=== PATIENT | female | born 1940 | race Caucasian/White ===

== ENCOUNTER → 2021-04-06 09:00 | Outpatient (CLI) | payer MEDICARE, SELFPAY ==
[2021-04-06 20:36] VITALS: BMI 18.0
== END ==
PROVIDERS: Referring Provider Internal Medicine; Visit Provider Internal Medicine
DX: Z23 Encounter for immunization (principal); R62.7 Adult failure to thrive; R07.9 Chest pain, unspecified; R06.02 Shortness of breath; E86.0 Dehydration; R53.1 Weakness; R63.4 Abnormal weight loss; R60.0 Localized edema; W19.XXXA Unspecified fall, initial encounter; F03.90 Unspecified dementia, unspecified severity, without behavioral disturbance, psychotic disturbance, mood disturbance, and anxiety; R32 Unspecified urinary incontinence; R15.9 Full incontinence of feces; E11.9 Type 2 diabetes mellitus without complications; I10 Essential (primary) hypertension; I25.10 Atherosclerotic heart disease of native coronary artery without angina pectoris; Z91.81 History of falling; Z79.84 Long term (current) use of oral hypoglycemic drugs; Z20.822 Contact with and (suspected) exposure to COVID-19
CPT/HCPCS: 0031A

== ENCOUNTER 2021-04-06 12:14 | Observation (INO) | payer OTHER, MEDICAID, SELFPAY ==
[2021-04-06 12:29] VITALS: BP 168/81; PULSE 80; RESP 22; TEMP 36.1; O2SAT 99; BMI 18.0
--- NOTE | 2021-04-06 12:36 | DI.RAD.S_ITS ---
PROCEDURE: XR CHEST 1V INDICATIONS: chest pain TECHNIQUE: One view of the chest was acquired. COMPARISON: None. FINDINGS: Surgical changes and devices: Prior right axillary dissection and right mastectomy. Lungs and pleura: Lungs are clear. No pleural effusions or pneumothorax. Mediastinum: Mediastinal contours appear normal. Heart size is normal. Bones and chest wall: No suspicious bony lesions. Probable mild compression fracture of T10. Chronicity unknown. Overlying soft tissues appear unremarkable. IMPRESSION: No acute cardiopulmonary disease. Dictated by: Bailey Simmons M.D. on 04/06/2021 at 13:07 Approved by: Bailey Simmons M.D. on 04/06/2021 at 13:09
[2021-04-06 13:04] LABS: Add Manual Diff / Slide Review NO; Basophils Absolute Auto 100 /uL (0-100); Basophils Percent Auto 0.8 % (0-2); Eosinophils Absolute Auto 100 /uL (0-450); Eosinophils Percent Auto 1.3 % (2-4); Hematocrit 44.3 % (36-46); Hemoglobin 14.5 g/dL (12.0-16.0); Lymphocytes Absolute Auto 2000 /uL (1100-4500); Lymphocytes Percent Auto 24.5 % (25-40); Mean Corpuscular HGB Conc 32.7 % (30-36); Mean Corpuscular Volume 82.5 fL (80-100); Monocytes Absolute Auto 600 /uL (0-900); Neutrophils Absolute Auto 5400 /uL (1500-7000); Neutrophils Percent Auto 66.4 % (50-75); Platelet Count 304 X10^3/uL (150-400); Red Blood Cell Count 5.36 X10^6/uL (4.0-5.2); Red Cell Distribution Width 13.2 % (11.6-14.8); White Blood Cell Count 8.1 X10^3/uL (4.5-11.0)
[2021-04-06 13:16] LABS: Alanine Aminotransferase 11 IU/L (<35); Albumin 4.1 g/dL (3.5-5.0); Albumin Globulin Ratio 1.4 (1.0-2.8); Alkaline Phosphatase 76 U/L (38-126); Aspartate Aminotransferase 20 IU/L (14-36); BUN Creatinine Ratio 42.1 (6-22); Bilirubin Total 0.4 mg/dL (0.2-1.3); Blood Urea Nitrogen 16 mg/dL (7-17); Calcium 9.6 mg/dL (8.4-10.2); Carbon Dioxide 29 mmol/L (22-32); Chloride 100 mmol/L (98-107); Creatine Kinase 31 U/L (30-135); Estimated Glomerular Filt Rate > 60.0 mL/min (>60); Glucose 244 mg/dL (80-110); HEMOLYSIS < 15 (0-50); Lipase 43 U/L (23-300); Potassium 4.3 mmol/L (3.4-5.1); Sodium 138 mmol/L (137-145); Total Protein 7.1 g/dL (6.3-8.2)
[2021-04-06 13:26] LABS: Troponin I < 0.012 ng/mL (0.01-0.034)
[2021-04-06 13:32] LABS: NT-proBNP (BNP-Adult 18+) 670 pg/mL (<450)
--- NOTE | 2021-04-06 14:32 | ED.CHESTPAIN ---
HPI - Chest Pain General Chief Complaint: Shortness of Breath/Dyspnea Stated Complaint: SOB/Holding Heart/Failing Quickly Time Seen by Provider: 04/06/21 13:47 Source: patient Mode of arrival: Ambulatory Limitations: no limitations History of Present Illness HPI narrative: Patient is an 81-year-old female history of coronary artery disease, dementia with cognitive difficulty. His she presents today with her daughter. Her daughter has been taking care of her for 6 months she is asked help but no other family member is able to help her. She acute is now taking care of her in a hotel which is becoming very difficult. She presents today with chest pain and some shortness of breath. Daughter is concerned. They been trying get her into a PCP but he is out of network. She was evaluated by a reducing salon attendant or had some cardiology testing is unclear what was done. With the concern today is chest discomfort. Daughter states that she has had significant decline in her physical ability or last 2 weeks and especially over the last 1 week. She was able to at least transfer and ambulate some however over the last week she is not able to ambulate at all. She does have a wheelchair but becoming very difficult to care for. She has noticed swelling in her right leg as well. She has been falling a lot as well. overall is pleasantly confused. History is provided by daughter. Related Data Allergies Allergy/AdvReac Type Severity Reaction Status Date / Time No Known Drug Allergies Allergy Verified 04/06/21 12:29 Review of Systems Review of Systems Narrative: Dementia ROS Unobtainable: Unobtainable due to mental condition Patient History Social History household members: children Smoking Status: Never smoker Smoking Status: Never smoker Substance Use Type: does not use Exam Initial Vital Signs Initial Vital Signs: Vital Signs Temperature 97.0 F L 04/06/21 12:29 Pulse Rate 80 04/06/21 12:29 Respiratory Rate 22 04/06/21 12:29 Blood Pressure 168/81 H 04/06/21 12:29 Pulse Oximetry 99 04/06/21 12:29 GENERAL: Thin elderly confused female 81 years old HEENT: Head atraumatic,EOMI, pupils reactive, face symmetric, moist mucous membranes CARDIOVASCULAR: Regular rate and rhythm without murmurs, rubs or gallops. RESPIRATORY: Breath sounds equal bilaterally, no wheezes rales or rhonchi. ABDOMEN: Soft, nontender. Normoactive bowel sounds all 4 quadrants. No guarding or rebound. EXTREMITIES: Normal range of motion, no clubbing or edema. Neurovascularly intact. Right lower extremity is noted to be more swollen in her thigh than the left. She has some mild pain in her hip with internal external rotation. Pelvis is otherwise stable. Distal pedal pulses intact. NEUROLOGICAL: Alert foundation maker strength equal bilaterally SKIN: Warm, dry, no laceration, no petechiae, no rashes or lesions. Course Orders Ordered: ED Orders 04/06/21 12:36 XR chest 1V Stat 04/06/21 12:37 Consult to ADVOCACY DIRECTOR - Certified Control Systems Technician Stat 04/06/21 12:38 EKG-12 Lead Stat 04/06/21 12:58 Complete Blood Count AUTO DIFF Stat Comprehensive Metabolic Panel Stat Lipase Stat Troponin & CK Cardiac Panel Stat 04/06/21 13:12 NT-proBNP (BNP-Adult 18+) Stat 04/06/21 14:38 CT head/brain wo con Stat XR hip w pel if done RT 2V Stat 04/06/21 15:20 Consult to Physical Therapy Evaluate & Treat 04/06/21 16:02 COVID19 - ADMIT (SHEET HEATER HELPER swab/PCR) Stat 04/06/21 17:29 US periph venous low extrem rt Stat Discontinued Medications COVID-19 Vacc Ad26-S Recombinant (JSN) (PF) (Covid-19 Vacc, Ad26(Dayanara)/Pf 0.5 Ml) 0.5 ml IM .ONCE ONE Stop: 04/06/21 16:06 Last Admin: 04/06/21 16:19 Dose: 0.5 ml Documented by: WILLIAMS Vital Signs Vital signs: Vital Signs - 8 hr 04/06/21 12:29 04/06/21 17:29 Temperature 97.0 F L Pulse Rate 80 82 Respiratory Rate 22 Blood Pressure 168/81 H 158/75 H Pulse Oximetry 99 98 MDM - Chest Pain Lab Data Result diagrams: 04/06/21 12:58 04/06/21 12:58 Labs: Lab Results 04/06/21 04/06/21 04/06/21 Range/Units 12:58 12:58 13:12 WBC 8.1 (4.5-11.0) X10^3/uL RBC 5.36 H (4.0-5.2) X10^6/uL Hgb 14.5 (12.0-16.0) g/dL Hct 44.3 (36-46) % MCV 82.5 (80-100) fL MCH 27.0 (26-34) PG MCHC 32.7 (30-36) % RDW 13.2 (11.6-14.8) % Plt Count 304 (150-400) X10^3/uL Neut % (Auto) 66.4 (50-75) % Lymph % (Auto) 24.5 L (25-40) % [place] % (Auto) 7.0 (3-14) % Eos % (Auto) 1.3 L (2-4) % Baso % (Auto) 0.8 (0-2) % Neut # (Auto) 5400 (0507-5324) /uL Lymph # (Auto) 2000 (8019-9886) /uL [place] # (Auto) 600 (0-900) /uL Eos # (Auto) 100 (0-450) /uL Baso # (Auto) 100 (0-100) /uL Sodium 138 (137-145) mmol/L Potassium 4.3 (3.4-5.1) mmol/L Chloride 100 (98-107) mmol/L Carbon Dioxide 29 (22-32) mmol/L BUN 16 (7-17) mg/dL Creatinine 0.38 L (0.52-1.04) mg/dL Estimated GFR > 60.0 (>60) mL/min BUN/Creatinine Ratio 42.1 H (6-22) Glucose 244 H (80-110) mg/dL Calcium 9.6 (8.4-10.2) mg/dL Total Bilirubin 0.4 (0.2-1.3) mg/dL AST 20 (14-36) IU/L ALT 11 (<35) IU/L Alkaline Phosphatase 76 (38-126) U/L Total Creatine Kinase 31 (30-135) U/L CK-MB (CK-2) TNP CK-MB (CK-2) Rel Index TNP Troponin I < 0.012 (0.01-0.034) ng/mL NT-Pro-B Natriuret Pep 670 H (<450) pg/mL Total Protein 7.1 (6.3-8.2) g/dL Albumin 4.1 (3.5-5.0) g/dL Globulin 3.0 (1.7-4.1) g/dL Albumin/Globulin Ratio 1.4 (1.0-2.8) Lipase 43 (23-300) U/L SARS-CoV-2 (PCR) (Negative) 04/06/21 Range/Units 16:02 WBC (4.5-11.0) X10^3/uL RBC (4.0-5.2) X10^6/uL Hgb (12.0-16.0) g/dL Hct (36-46) % MCV (80-100) fL MCH (26-34) PG MCHC (30-36) % RDW (11.6-14.8) % Plt Count (150-400) X10^3/uL Neut % (Auto) (50-75) % Lymph % (Auto) (25-40) % [place] % (Auto) (3-14) % Eos % (Auto) (2-4) % Baso % (Auto) (0-2) % Neut # (Auto) (2141-0153) /uL Lymph # (Auto) (2060-6905) /uL [place] # (Auto) (0-900) /uL Eos # (Auto) (0-450) /uL Baso # (Auto) (0-100) /uL Sodium (137-145) mmol/L Potassium (3.4-5.1) mmol/L Chloride (98-107) mmol/L Carbon Dioxide (22-32) mmol/L BUN (7-17) mg/dL Creatinine (0.52-1.04) mg/dL Estimated GFR (>60) mL/min BUN/Creatinine Ratio (6-22) Glucose (80-110) mg/dL Calcium (8.4-10.2) mg/dL Total Bilirubin (0.2-1.3) mg/dL AST (14-36) IU/L ALT (<35) IU/L Alkaline Phosphatase (38-126) U/L Total Creatine Kinase (30-135) U/L CK-MB (CK-2) CK-MB (CK-2) Rel Index Troponin I (0.01-0.034) ng/mL NT-Pro-B Natriuret Pep (<450) pg/mL Total Protein (6.3-8.2) g/dL Albumin (3.5-5.0) g/dL Globulin (1.7-4.1) g/dL Albumin/Globulin Ratio (1.0-2.8) Lipase (23-300) U/L SARS-CoV-2 (PCR) Negative (Negative) Imaging Data Chest x-ray: Radiologist's Impression: PROCEDURE:? XR CHEST 1V ? INDICATIONS:? chest pain ? TECHNIQUE:? One view of the chest was acquired.? ? COMPARISON:? None. ? FINDINGS:? ? Surgical changes and devices:? Prior right axillary dissection and right mastectomy. ? Lungs and pleura:? Lungs are clear.? No pleural effusions or pneumothorax.? ? Mediastinum:? Mediastinal contours appear normal.? Heart size is normal.? ? Bones and chest wall:? No suspicious bony lesions.? Probable mild compression fracture of T10.? Chronicity unknown.? Overlying soft tissues appear unremarkable.? ? IMPRESSION:? No acute cardiopulmonary disease.? ? ? Dictated by: Bailey Simmons M.D. on 04/06/2021 at 13:07 ? CT scan - head: Radiologist's Impression: PROCEDURE:? CT HEAD/BRAIN WO CON ? INDICATIONS:? falls ? TECHNIQUE:? Noncontrast 4.5 mm thick angled axial sections acquired from the foramen magnum to the vertex, with coronal and sagittal reformats.? For radiation dose reduction, the following was used:? automated exposure control, adjustment of mA and/or kV according to patient size.? ? COMPARISON:? None. ? FINDINGS:? Image quality:? Excellent.? ? CSF spaces:? Basal cisterns are patent.? No extra-axial fluid collections.? The ventricles are symmetric in size and shape.? ? Brain:? No intracranial bleeds or masses.? There is cerebral volume loss for age, with resultant ventricular and sulcal prominence.? There are periventricular and deep white matter chronic small vessel ischemic changes.? There is intracranial internal carotid artery atherosclerosis.? ? Skull and face:? Calvarium and visualized facial bones appear intact, without suspicious lesions.? Incidental note is made of hyperostosis frontalis. This is not considered to be pathologic in a woman of this age. ? Sinuses:? Visualized sinuses and mastoids are clear.? Moderate rightward nasal septal deviation is incidentally noted. ? ? ? IMPRESSION:? ? No acute intracranial process is seen.? ? No acute intracranial hemorrhage is seen.? ? ? Dictated by: Benji Meade M.D. on 04/06/2021 at 13:55 ? ? Extremity x-ray #1: Radiologist's Impression: PROCEDURE:? XR HIP W PEL IF DONE RT 2V ? INDICATIONS:? pain ? TECHNIQUE:? AP pelvis with lateral view of the right hip. ? COMPARISON:? None. ? FINDINGS:? ? Bones:? The patient is mildly rotated towards the right.? No acute fractures or dislocations.? Pelvic ring appears intact.? No suspicious bony lesions.? Mild degenerative changes are seen in the lower lumbar spine.? There is generalized osteopenia. ? Soft tissues:? The visualized bowel gas pattern is normal.? No suspicious soft tissue calcifications.? ? ? IMPRESSION:? No acute osseous abnormality.? Generalized osteopenia.? If clinical suspicion and/or symptoms persist, advanced imaging (e.g. CT, MRI) may be helpful for further assessment. ? ? ? Dictated by: Rafa Sanford M.D. on 04/06/2021 at 15:06 ? ? US - DVT: Radiologist's Impression: PROCEDURE:? US PERIPH VENOUS LOW EXTREM RT ? INDICATIONS:? EDEMA ? TECHNIQUE:? Real-time imaging, as well as color and pulse Doppler interrogation, were performed of the lower extremity deep veins from the inguinal ligament to the popliteal fossa.? ? COMPARISON:? None. ? FINDINGS:? The common femoral, femoral and popliteal veins are normally compressible, and free of intraluminal thrombus.? Color and pulse Doppler demonstrate normal phasic intraluminal flow.? There is normal augmentation response to distal compression maneuver. ? ? IMPRESSION:? No sonographic evidence of DVT. ? ? Dictated by: Korey France M.D. on 04/06/2021 at 19:57 ? ? Approved by: Korey France M.D. on 04/06/2021 at 19:57 ? ECG Data Interpretation: Sinus rhythm PVCs noted rate 77 SD interval 142 QRS [address] changes or T-wave inversions MDM Narrative Medical decision making narrative: Patient has had significant physical decline over the last 2 weeks and specially over the last 1 week. Workup today does not show any cause. Cardiac workup is negative head CT and x-rays are also negative. Patient is evaluated by social Work and by physical therapy. She has failed bedside physical therapy completely have. Social Work does have Sound few in the works however she requires a COVID vaccine at before she can get into long-term nursing care. She did receive her COVID vaccine in the emergency department today. She apparently is having some mild shortness of breath BNP is slightly elevated at 670. She currently does not appear to be in acute respiratory distress chest x-ray does not show any evidence of congestive heart failure. She is also found to be hyperglycemic. She has been in a hallway bed unable to get a urine sample from her. She has no leukocytosis and is afebrile. Dr. Cerna updated on patient and agrees to observation. Discharge Plan Departure Patient Disposition: Admitted as Observation Clinical Impression: Acute hyperglycemia, Chest pain Admit Date/Time: 04/06/21 18:15 Admit Provider: Cresencio Cerna
--- NOTE | 2021-04-06 14:38 | DI.CT.S_ITS ---
PROCEDURE: CT HEAD/BRAIN WO CON INDICATIONS: falls TECHNIQUE: Noncontrast 4.5 mm thick angled axial sections acquired from the foramen magnum to the vertex, with coronal and sagittal reformats. For radiation dose reduction, the following was used: automated exposure control, adjustment of mA and/or kV according to patient size. COMPARISON: None. FINDINGS: Image quality: Excellent. CSF spaces: Basal cisterns are patent. No extra-axial fluid collections. The ventricles are symmetric in size and shape. Brain: No intracranial bleeds or masses. There is cerebral volume loss for age, with resultant ventricular and sulcal prominence. There are periventricular and deep white matter chronic small vessel ischemic changes. There is intracranial internal carotid artery atherosclerosis. Skull and face: Calvarium and visualized facial bones appear intact, without suspicious lesions. Incidental note is made of hyperostosis frontalis. This is not considered to be pathologic in a woman of this age. Sinuses: Visualized sinuses and mastoids are clear. Moderate rightward nasal septal deviation is incidentally noted. IMPRESSION: No acute intracranial process is seen. No acute intracranial hemorrhage is seen. Dictated by: Benji Meade M.D. on 04/06/2021 at 13:55 Approved by: Benji Meade M.D. on 04/06/2021 at 13:55
--- NOTE | 2021-04-06 14:38 | DI.RAD.S_ITS ---
PROCEDURE: XR HIP W PEL IF DONE RT 2V INDICATIONS: pain TECHNIQUE: AP pelvis with lateral view of the right hip. COMPARISON: None. FINDINGS: Bones: The patient is mildly rotated towards the right. No acute fractures or dislocations. Pelvic ring appears intact. No suspicious bony lesions. Mild degenerative changes are seen in the lower lumbar spine. There is generalized osteopenia. Soft tissues: The visualized bowel gas pattern is normal. No suspicious soft tissue calcifications. IMPRESSION: No acute osseous abnormality. Generalized osteopenia. If clinical suspicion and/or symptoms persist, advanced imaging (e.g. CT, MRI) may be helpful for further assessment. Dictated by: Rafa Sanford M.D. on 04/06/2021 at 15:06 Approved by: Rafa Sanford M.D. on 04/06/2021 at 15:08
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
--- NOTE | 2021-04-06 15:57 | PC.NURSE ---
Full assist per physical therapy report.
[2021-04-06] MEDS: COVID-19 VACC, Ad26(JANSSEN)/PF 0.5 ML IM (16:19)
[2021-04-06 17:03] LABS: COVID19 - ADMIT (NP swab/PCR) Negative (Negative)
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
[2021-04-06 17:29] VITALS: BP 158/75; PULSE 82; O2SAT 98
--- NOTE | 2021-04-06 17:29 | DI.US.S_ITS ---
PROCEDURE: US PERIPH VENOUS LOW EXTREM RT INDICATIONS: EDEMA TECHNIQUE: Real-time imaging, as well as color and pulse Doppler interrogation, were performed of the lower extremity deep veins from the inguinal ligament to the popliteal fossa. COMPARISON: None. FINDINGS: The common femoral, femoral and popliteal veins are normally compressible, and free of intraluminal thrombus. Color and pulse Doppler demonstrate normal phasic intraluminal flow. There is normal augmentation response to distal compression maneuver. IMPRESSION: No sonographic evidence of DVT. Dictated by: Korey France M.D. on 04/06/2021 at 19:57 Approved by: Korey France M.D. on 04/06/2021 at 19:57
[2021-04-06 19:43] VITALS: BP 148/78; PULSE 70; RESP 16; O2SAT 98
[2021-04-06 20:29] VITALS: BP 124/77; PULSE 86; RESP 14; TEMP 36.7; O2SAT 97
[2021-04-06 20:36] VITALS: BMI 18.0
--- NOTE | 2021-04-06 20:37 | P.HP_ITS ---
History of Present Illness History of Present Illness Date Patient Seen: 04/06/21 Time Patient Seen: 20:37 Chief complaint: SOB/Holding Heart/Failing Quickly Narrative: The Patient is an 81 y/o female with a history of type 2 Diabetes, Hypertension, CAD s/p 2 stents, bilateral cataract surgery admitted for failure to thrive. The patient and her daughter moved up from [place], [place] a few years ago. She has a son who lives on [facility] and she came to [place] with the plan to move to [place] with her son. According to the daughter she has gotten progressively weaker such that she is unsafe to ambulate independently. She is now incontinent to both urine and stool and has had significant weight loss. She was last 112 pounds but has weighed in at 102 pounds. Her appetite is poor and she often does not want to eat. In addition she is a bit forgetful vs. confused which is more recent. Yesterday she was falling and so the daughter brought her to the hospital for evaluation. She denies fever, chills, or cough. She is always cold. She was not vaccinated for Covid-19 but received the J&J vaccine in the ED this evening. She has no nausea, vomiting, or diarrhea. She denies any joint pains or rashes. She has a decubuitus ulcer on the left heel and buttock. She also has been seen to clutch her chest but when asked she says she is not in pain. Patient had a head CT in the ED which was negative, Chest Xray was negative, Pelvic Xray negative for fracture. She is admitted under observation for evaluation of failure to thrive. Patient History Medical History (Updated 04/06/21 @ 20:49 by Hiral Aldrich MD) CAD (coronary artery disease) Encephalitis Hypertension Tachycardia Type 2 diabetes mellitus Surgical History (Updated 04/06/21 @ 20:44 by Hiral Aldrich MD) Status post laser cataract surgery of both eyes Family & Social History Family History Mother Cancer Social History: household members children Safety & Behavioral: Feels Safe in Current Yes Environment Tobacco & Substance use: Smoking Status Never smoker Substance Use Type does not use Meds Home Medications and Allergies Home Medications Medication Instructions Recorded Confirmed Type aspirin 81 mg tablet 81 mg PO DAILY 04/06/21 04/06/21 History glipizide 5 mg tablet, extended 5 mg PO DAILY 04/06/21 04/06/21 History release 24 hr metformin 500 mg tablet 500 mg PO BID 04/06/21 04/06/21 History metoprolol succinate 25 mg 25 mg PO DAILY 04/06/21 04/06/21 History tablet,extended release 24 hr Allergies Allergy/AdvReac Type Severity Reaction Status Date / Time No Known Drug Allergies Allergy Verified 04/06/21 12:29 Review of Systems Review of Systems Narrative: 10 point review systems is negative except as above Exam Vital Signs (past 8 hours): - 04/06/21 17:29 04/06/21 19:43 Pulse Rate 82 70 Respiratory Rate 16 Blood Pressure 158/75 H 148/78 H Pulse Oximetry 98 98 Oxygen Delivery Method Room Air Narrative Exam Narrative: ill appearing elderly female lying in bed HENID Other: NC/AT eomi, sclera anicteric, oropharynx reveals dry mucus membranes right ear with dry skin on the pinna Neck Other: supple, no adenopathy or thyromegaly Resp Other: Clear to auscultation Cardio Other: RRR nl Sl S2 2/6 ION GI Other: abd: soft/nontender/ non distended Skin Other: left heel with calcaneal ulcer Neuro Other: awake, alert, and appropriate. Cranial nerves in tact, Strength symmetric and equal of the upper extremities, does not move lower extremities Extrem Other: no edema Objective Labs Result Diagrams: 04/06/21 12:58 04/06/21 12:58 Labs: Laboratory Results - last 24 hr 04/06/21 04/06/21 04/06/21 12:58 12:58 13:12 WBC 8.1 RBC 5.36 H Hgb 14.5 Hct 44.3 MCV 82.5 MCH 27.0 MCHC 32.7 RDW 13.2 Plt Count 304 Neut % (Auto) 66.4 Lymph % (Auto) 24.5 L [place] % (Auto) 7.0 Eos % (Auto) 1.3 L Baso % (Auto) 0.8 Neut # (Auto) 5400 Lymph # (Auto) 2000 [place] # (Auto) 600 Eos # (Auto) 100 Baso # (Auto) 100 Sodium 138 Potassium 4.3 Chloride 100 Carbon Dioxide 29 BUN 16 Creatinine 0.38 L Estimated GFR > 60.0 BUN/Creatinine Ratio 42.1 H Glucose 244 H Calcium 9.6 Total Bilirubin 0.4 AST 20 ALT 11 Alkaline Phosphatase 76 Total Creatine Kinase 31 CK-MB (CK-2) TNP CK-MB (CK-2) Rel Index TNP Troponin I < 0.012 NT-Pro-B Natriuret Pep 670 H Total Protein 7.1 Albumin 4.1 Globulin 3.0 Albumin/Globulin Ratio 1.4 Lipase 43 SARS-CoV-2 (PCR) 04/06/21 16:02 WBC RBC Hgb Hct MCV MCH MCHC RDW Plt Count Neut % (Auto) Lymph % (Auto) [place] % (Auto) Eos % (Auto) Baso % (Auto) Neut # (Auto) Lymph # (Auto) [place] # (Auto) Eos # (Auto) Baso # (Auto) Sodium Potassium Chloride Carbon Dioxide BUN Creatinine Estimated GFR BUN/Creatinine Ratio Glucose Calcium Total Bilirubin AST ALT Alkaline Phosphatase Total Creatine Kinase CK-MB (CK-2) CK-MB (CK-2) Rel Index Troponin I NT-Pro-B Natriuret Pep Total Protein Albumin Globulin Albumin/Globulin Ratio Lipase SARS-CoV-2 (PCR) Negative Assessment & Plan Assessment & Plan narrative: Impression: 81 y/o female with type 2 diabetes, hypertension, history of CAD, weight loss, admitted for failure to thrive Patient has had increasing weakness, frequent falls, incontinence that has been progressive Labs suggest mild dehydration-BUN 42.1/Creat .[address] negative for an acute intracranial process or bleed Chest Xray-negative Hip xray-no fracture except generalized osteopenia ultrasound reveals no evidence of DVT WBC normal, Sars Covid-negative Patient will need to see PT/OT/Dietary Type 2 Diabetes-suboptimal control -per her daughter her last A1C was 10 -patient recently switched from Metformin 1000 mg daily, to 500mg twice daily -also on glucotrol 5mg daily -will hold oral medications, start basal/bolus insulin -check fasting lipid profile and AIC -per the daughter she has been intermittantly taking her medications Hypertension/Tachycardia -continue metoprolol 25 mg daily History of CAD -Troponin negative -EKG no acute ST-Twave changes -continue baby aspirin daily ? Dementia vs. Acute Metabolic Encephalopathy -will continue to observe For now will await Social Work evaluation regarding placement Patient is a full code and will note that in her record. Her daughter is her surrogate decision maker and will be getting DPOA paperwork notarized tomorrow. Patient will be placed on DVT prophylaxis Patient is admitted under observation I have utilized all available means to update, verify, confirm the patients current medications. Time Spent With Patient Critical Care time: I spent a total of [] minutes of critical care time on this patient's care today; this time is exclusive of procedural time.
[2021-04-06] MEDS: KCL 20 MEQ IN NS 1,000 ML 100 MEQ IV (21:25)
[2021-04-06 21:33] LABS: Cholesterol 193 mg/dL (140-199); HDL Cholesterol 45 mg/dL (40-60); LDL Cholesterol Calculated 101 mg/dL (<100); Triglycerides 237 mg/dL (35-150)
[2021-04-06] MEDS: INSULIN GLARGINE 100 UNIT/ML 3ML PEN 10 UNIT SUBCUT (21:36)
[2021-04-06 21:37] LABS: Hemoglobin A1C% w Est Avg Glu 10.2 % (4.0-6.0)
[2021-04-06 23:00] VITALS: O2SAT 96
[2021-04-07] VITALS (8 sets, daily range): BP systolic 142–155; BP diastolic 83–98; PULSE 81–89; RESP 15–16; TEMP 36.2–36.6; O2SAT 96–97
[2021-04-07] MEDS: PANTOPRAZOLE DR 20 MG TABLET PO (06:24)
[2021-04-07] MEDS: KCL 20 MEQ IN NS 1,000 ML 100 MEQ IV (07:31)
[2021-04-07] MEDS: ENOXAPARIN 40 MG/0.4 ML SYRINGE SUBCUT (08:48)
[2021-04-07] MEDS: METOPROLOL ER 25 MG TABLET PO (08:48)
[2021-04-07] MEDS: ASPIRIN EC 81 MG TABLET PO (08:48)
[2021-04-07] MEDS: SODIUM CHLORIDE 0.9% FLUSH 10 ML IV ×2 (09:09→21:39)
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
[2021-04-07 10:24] LABS: Add Manual Diff / Slide Review NO; Basophils Absolute Auto 0 /uL (0-100); Basophils Percent Auto 0.7 % (0-2); Eosinophils Absolute Auto 100 /uL (0-450); Eosinophils Percent Auto 2.2 % (2-4); Hematocrit 40.4 % (36-46); Hemoglobin 13.3 g/dL (12.0-16.0); Lymphocytes Absolute Auto 1200 /uL (1100-4500); Lymphocytes Percent Auto 17.9 % (25-40); Mean Corpuscular HGB Conc 32.9 % (30-36); Mean Corpuscular Hemoglobin 27.2 PG (26-34); Mean Corpuscular Volume 82.8 fL (80-100); Monocytes Absolute Auto 600 /uL (0-900); Monocytes Percent Auto 8.5 % (3-14); Neutrophils Absolute Auto 4700 /uL (1500-7000); Neutrophils Percent Auto 70.7 % (50-75); Platelet Count 234 X10^3/uL (150-400); Red Blood Cell Count 4.88 X10^6/uL (4.0-5.2); Red Cell Distribution Width 13.1 % (11.6-14.8); White Blood Cell Count 6.7 X10^3/uL (4.5-11.0)
[2021-04-07 10:36] LABS: BUN Creatinine Ratio 28.9 (6-22); Blood Urea Nitrogen 11 mg/dL (7-17); Carbon Dioxide 25 mmol/L (22-32); Chloride 106 mmol/L (98-107); Estimated Glomerular Filt Rate > 60.0 mL/min (>60); Glucose 157 mg/dL (80-110); Potassium 4.9 mmol/L (3.4-5.1); Sodium 136 mmol/L (137-145)
[2021-04-07 10:37] LABS: HEMOLYSIS 74 (0-50)
--- NOTE | 2021-04-07 11:01 | PT.IPTN ---
Physical Therapy Treatment Note M2 PT-IP Current Condition Start: 04/06/21 16:58 Freq: Status: Active Protocol: Document 04/06/21 17:09 LR (Rec: 04/06/21 17:24 [facility] [id number]) Physical Therapy Current Condition Current Condition Evaluation Date 04/06/21 Treatment Diagnosis weakness M3 PT-IP Subjective Start: 04/06/21 16:58 Freq: Status: Active Protocol: Document 04/07/21 10:37 KS (Rec: 04/07/21 12:15 KS [id number]) Subjective Physical Therapy Visit Type Type Treatment Note Visit Start Time 10:37 Visit Stop Time 11:01 Total Visit Minutes 24 Number of FLAKING ROLL OPERATOR Visits 1 Physical Therapy Visit Comments Patient Comments Pt agreeable to work w/ therapy. M4 PT-IP Mobility and Gait Start: 04/06/21 16:58 Freq: Status: Active Protocol: Document 04/07/21 10:37 KS (Rec: 04/07/21 12:15 KS [id number]) PT-Bed Mobility Assessment Scooting Scooting to Edge of Bed Contact Guard Assistance PT-Transfer Assessment Sit to and From Stand Sit to and from Stand Moderate Assistance,Use of Upper Extremities Equipment Transfer Assistive Device Gait Belt,Front Wheeled Walker Orthotic/Prosthetic Devices or Brace: No Transfers Transfer Destination Chair,Bedside Commode Transfer Technique Stand Step Pivot Transfer Ability Level of Assist Moderate Assistance Comments Mobility Comments Pt reclined in chair upon arrival from therapy. Pt able to complete 1x10 bilateral ankle pumps, quad sets, glute sets, and SLR w/ verbal and tactile cues. Pt quick to fatigue, but able to complete. Following exercises, pt completed sit<>Stand w/ FWW and Mod A and cues. Pt requiring cues to remain upright when standing. Pt then requested to sit back down. She then requested to use BSC. HARDENING MACHINE OPERATOR HELPER called for assistance. Pt completed sit<>stand and stand pivot transfer to BSC Mod A x2 w/ cues for sequencing and FWW management. Stand<>Sit Mod A. After toileting, pt completed stand step pivot w/ FWW and Mod A x2 back to chair. Pt left in chair w/ chair alarm on and all needs in reach. Gait Assessment Gait Gait Assistance Required: Moderate Assistance Distance (Feet) 2 Assistive Devices Assistive Device Gait Belt,Front Wheeled Walker Orthotic/Prosthetic Devices or Brace: No Gait Deviations General Gait Pattern Decreased Stride Length, Decreased Feet Clearance, Flexed Trunk,Step-to Gait Factors Limiting Gait Function Factors Limiting Gait Function Decreased Activity Tolerance, Decreased Strength,Difficulty Following Directions,Limited Range of Motion,Poor Balance, Poor Safety Awareness PT-Balance Assessment Sitting Balance and Reactions Static Sitting Balance Ability Fair Dynamic Sitting Balance Ability Poor Standing Balance and Reactions Static Standing Balance Ability Poor Dynamic Standing Balance Ability Poor Device Used FWW M5 PT-IP Objective Assessments Start: 04/06/21 16:58 Freq: Status: Active Protocol: Document 04/06/21 17:09 [facility] (Rec: 04/06/21 17:24 [facility] [id number]) Orientation Orientation/Cognition Level of Alertness Alert Safety Awareness Decreased Safety Awareness Memory Description Short Term Impaired Gross Range of Motion Lower Extremity ROM Impairments unable to do heel slide B Strength Lower Extremity Strength Assessment Bilaterally Impaired M6 PT-IP Treatment Start: 04/06/21 16:58 Freq: Status: Active Protocol: Document 04/07/21 10:37 KS (Rec: 04/07/21 12:15 KS [id number]) Physical Therapy Treatment Exercises Exercises Ankle Pumps,Gluteal Sets,Quad Sets,Straight Leg Raises Education Education Provided Safety M7 PT-IP Assessment and Plan Start: 04/06/21 16:58 Freq: Status: Active Protocol: Document 04/07/21 12:16 KS (Rec: 04/07/21 12:16 KS [id number]) PT Summary Assessment and Plan Potential Rehabilitation Potential Fair
--- NOTE | 2021-04-07 11:29 | P.PN_ITS ---
Subjective Subjective Date Patient Seen: 04/07/21 Time Patient Seen: 08:00 Interval history: She has no complaints currently. No chest pain, no shortness of breath. No abdominal pain. Exam Vital Signs (past 8 hours): - 04/07/21 07:35 04/07/21 07:40 Temperature 97.3 F L Pulse Rate 88 Respiratory Rate 16 Blood Pressure 153/96 H Pulse Oximetry 97 97 Oxygen Delivery Method Room Air Oxygen Flow Rate 0 Narrative Exam Narrative: GEN: no acute distress CV: regular rate and rhythm PULM: clear bilaterally ABD: soft, nontender, nondistended, no organomegaly EXT: warm and well perfused with no edema Objective Labs Result Diagrams: 04/07/21 10:15 04/07/21 10:15 Labs: Laboratory Results - last 24 hr 04/06/21 04/06/21 04/06/21 12:58 12:58 12:58 WBC 8.1 RBC 5.36 H Hgb 14.5 Hct 44.3 MCV 82.5 MCH 27.0 MCHC 32.7 RDW 13.2 Plt Count 304 Neut % (Auto) 66.4 Lymph % (Auto) 24.5 L Benson % (Auto) 7.0 Eos % (Auto) 1.3 L Baso % (Auto) 0.8 Neut # (Auto) 5400 Lymph # (Auto) 2000 Benson # (Auto) 600 Eos # (Auto) 100 Baso # (Auto) 100 Sodium 138 Potassium 4.3 Chloride 100 Carbon Dioxide 29 BUN 16 Creatinine 0.38 L Estimated GFR > 60.0 BUN/Creatinine Ratio 42.1 H Glucose 244 H Hemoglobin A1c Calcium 9.6 Total Bilirubin 0.4 AST 20 ALT 11 Alkaline Phosphatase 76 Total Creatine Kinase 31 CK-MB (CK-2) TNP CK-MB (CK-2) Rel Index TNP Troponin I < 0.012 NT-Pro-B Natriuret Pep Total Protein 7.1 Albumin 4.1 Globulin 3.0 Albumin/Globulin Ratio 1.4 Triglycerides 237 H Cholesterol 193 LDL Cholesterol, Calc 101 H HDL Cholesterol 45 Lipase 43 SARS-CoV-2 (PCR) 04/06/21 04/06/21 04/06/21 12:58 13:12 16:02 WBC RBC Hgb Hct MCV MCH MCHC RDW Plt Count Neut % (Auto) Lymph % (Auto) Benson % (Auto) Eos % (Auto) Baso % (Auto) Neut # (Auto) Lymph # (Auto) Benson # (Auto) Eos # (Auto) Baso # (Auto) Sodium Potassium Chloride Carbon Dioxide BUN Creatinine Estimated GFR BUN/Creatinine Ratio Glucose Hemoglobin A1c 10.2 H Calcium Total Bilirubin AST ALT Alkaline Phosphatase Total Creatine Kinase CK-MB (CK-2) CK-MB (CK-2) Rel Index Troponin I NT-Pro-B Natriuret Pep 670 H Total Protein Albumin Globulin Albumin/Globulin Ratio Triglycerides Cholesterol LDL Cholesterol, Calc HDL Cholesterol Lipase SARS-CoV-2 (PCR) Negative 04/07/21 04/07/21 10:15 10:15 WBC 6.7 RBC 4.88 Hgb 13.3 Hct 40.4 MCV 82.8 MCH 27.2 MCHC 32.9 RDW 13.1 Plt Count 234 Neut % (Auto) 70.7 Lymph % (Auto) 17.9 L Benson % (Auto) 8.5 Eos % (Auto) 2.2 Baso % (Auto) 0.7 Neut # (Auto) 4700 Lymph # (Auto) 1200 Benson # (Auto) 600 Eos # (Auto) 100 Baso # (Auto) 0 Sodium 136 L Potassium 4.9 Chloride 106 Carbon Dioxide 25 BUN 11 Creatinine 0.38 L Estimated GFR > 60.0 BUN/Creatinine Ratio 28.9 H Glucose 157 H Hemoglobin A1c Calcium 9.0 Total Bilirubin AST ALT Alkaline Phosphatase Total Creatine Kinase CK-MB (CK-2) CK-MB (CK-2) Rel Index Troponin I NT-Pro-B Natriuret Pep Total Protein Albumin Globulin Albumin/Globulin Ratio Triglycerides Cholesterol LDL Cholesterol, Calc HDL Cholesterol Lipase SARS-CoV-2 (PCR) [facility] Medical History (Updated 04/06/21 @ 20:49 by Hiral Aldrich MD) CAD (coronary artery disease) Encephalitis Hypertension Tachycardia Type 2 diabetes mellitus Surgical History (Updated 04/06/21 @ 20:44 by Hiral Aldrich MD) Status post laser cataract surgery of both eyes Family History Mother Cancer Social History household members: children Smoking Status: Never smoker alcohol intake: never Assessment & Plan Assessment & Plan narrative: Ms. Campbell is an 81W with PMH DM2, HTN, CAD, weight loss admitted for failure to thrive 1. Failure to thrive, chronic - Patient has had increasing weakness, frequent falls, incontinence that has been progressive - Labs suggest mild dehydration-BUN 42.1/Creat .38 - Head Ct negative for an acute intracranial process or bleed - Chest Xray-negative - Hip xray-no fracture except generalized osteopenia - ultrasound reveals no evidence of DVT - WBC normal, Sars Covid-negative - Patient will need to see PT/OT/Dietary 2. Type 2 Diabetes-suboptimal control - per her daughter her last A1C was 10 - patient recently switched from Metformin 1000 mg daily, to 500mg twice daily - also on glucotrol 5mg daily - will hold oral medications, start basal/bolus insulin - check fasting lipid profile and AIC - per the daughter she has been intermittantly taking her medications 3. Hypertension/Tachycardia -continue metoprolol 25 mg daily 4. History of CAD -Troponin negative -EKG no acute ST-Twave changes -continue baby aspirin daily 5. Dementia -will continue to observe Dispo: pending social work eval, possible snf CODE: Full Proxy: Gaby Abernathy, daughter I have utilized all available means to update, verify, confirm the patients cur rent medications. Time Spent With Patient Critical Care time: I spent a total of [] minutes of critical care time on this patient's care today; this time is exclusive of procedural time.
[2021-04-07] MEDS: INSULIN LISPRO 100 UNIT/ML 3ML VIAL SUBCUT (12:14)
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
--- NOTE | 2021-04-07 16:07 | CM.DANOTE ---
DCP/Assessment: Reviewed chart. Patient is a 81yr old female admitted to [facility] with SOB. No PCP listed. Primary payor is 1)[employer] AD[employer]. Met with patient this AM explained CM/SW role. Patient reports that she is staying with her daughter in [place]. Patient requests that CARPET LAYER call her daughter/Gaby. Placed call to Gaby explained role. Daughter reports that patient and her currently staying in hotel. Family has been working [place] placing [place] in [place] or [place]. Daughter reports that patient does have Medicaid but she is unsure how much they have done re: regional intermodal truck driver placement. Initially, patient was living in [place] with grandchildren. Per notes, they were no longer able to care for her so daughter brought her to this area. Both daughter and son would like patient to stay in [facility] if possible. Patient's son resides on [facility]. PT/OT evaluations completed and current recommendation is SNF. Daughter in agreement for patient to go to contracted SNF for rehab prior to long-term placement. CARPET LAYER placed call to Ana Laura at [facility] and requested that she review. Ana Laura in agreement to review and attempt authorization from [employer]? CARPET LAYER did not hear back from Ana Laura this afternoon. Hopeful authorization in process. Ana Laura aware that long-term placement will be needed after SNF rehab. P: CARPET LAYER attempting SNF placement at [facility]. CM team to follow up with facility in AM. If [facility] unable to accept will need to contact Home and Community CM for additional d/c planning support. [facility] Discharge Planning/Care Management CM Discharge Assessment Start: 04/07/21 16:00 Freq: Status: Active Protocol: Document 04/07/21 16:00 [facility] (Rec: 04/07/21 16:06 [facility] [id number]) Discharge Planning Assessment Assigned Grain Processor ROSELYN Olsen Contact Information Gaby Abernathy (daughter) ph# [phone] Advance Directives? No History Provided By Family Member,Medical Record Comment Motel with daughter Household Members children Type of transporation used prior to Relies on Others admit Independent with ADL's Patient will need PT/OT for weakness Is patient alert and oriented? No Caregiver for Another No DME Already Rented / Owned Wheelchair,FWW / Walker Patient/Family Preference Long-Term Facility Barriers to Discharge Yes Comment Need to obtain authorization from [employer] AD[employer] Discharge Plan Long-Term Facility Transportation Arrangement Facility Referrals Initiated Long-Term Additional Comment Requested that [facility] evaluate because they have [facility] contract. Daughter aware and agreeable. SNF/HH Preference [employer] contracted facility Has Agency SNF been contacted Yes Comment ED notes indicate that patient has home and community GERA/ Herson Lozano ph# [phone]. Message has been left. Review Status In Process Next Review Type Continued Stay Review
[2021-04-07] MEDS: INSULIN GLARGINE 100 UNIT/ML 3ML PEN 10 UNIT SUBCUT (21:38)
[2021-04-08] VITALS: BP 157/91; PULSE 98; RESP 17; TEMP 37.2; O2SAT 97
[2021-04-08] MEDS: PANTOPRAZOLE DR 20 MG TABLET PO (06:42)
[2021-04-08] MEDS: ACETAMINOPHEN 325 MG TABLET 650 MG PO (06:42)
[2021-04-08 07:00] VITALS: O2SAT 97
[2021-04-08 07:38] VITALS: BP 125/76; PULSE 95; RESP 23; TEMP 36.4; O2SAT 97
[2021-04-08 08:49] VITALS: BP 125/76; PULSE 95
[2021-04-08] MEDS: METOPROLOL ER 25 MG TABLET PO (08:49)
[2021-04-08] MEDS: ASPIRIN EC 81 MG TABLET PO (08:49)
[2021-04-08] MEDS: ENOXAPARIN 40 MG/0.4 ML SYRINGE SUBCUT (08:49)
[2021-04-08] MEDS: SODIUM CHLORIDE 0.9% FLUSH 10 ML IV (08:50)
--- NOTE | 2021-04-08 09:10 | CM.DPC ---
DCP/continued: Reviewed chart. Received call back from Ana Laura at [facility]. She reports that they have gotten authorization from [facility] and can accept today. Ana Laura has spoken with patient's daughter and Home and Community CM re: long-term planning. Transport arranged for 2:00pm today. RN given number to call report. XOCHILT Rosalind to finalize d/c. MOTION [employer] CARTOONIST will call daughter and provide her with picker/puller time. Provider in agreement. P: [facility] today. PASRR completed. BELKYS
[2021-04-08 09:40] VITALS: O2SAT 97
--- NOTE | 2021-04-08 10:15 | CM.DPNOTE ---
Faxed PASRR and dc order to [facility] MV sara Penaloza and received fax conf. Rosalind Romero CM Asst.
--- NOTE | 2021-04-08 10:54 | PC.NURSE ---
Addendum entered by Anu Bullock R.N. 04/08/21 12:03: Son in room visiting pt. PT and son assisted pt to chair with a turn and pivot, waffle cushion under buttocks. Original Note: AM shift note. pt alert and oriented to self. pt unable to provide answers to date (month or day of the week), unable to tell me who the president is, nor what town she is in. She was able to offer information about her family. pt makes slight movement changes but needs assistance with repositioning. Denying pain this shift, but reported bilateral hip pain during NOC shift. pt declined breakfast but did drink coffee and had 2 sips on an protein drink. Waffle cushion to buttocks for erythemic coccyx. Heels floating for spongy heels and an intact area noticed to medial left ankle. 97% RA. PIV flushing. ACHS, at 0730 CBG 107. I called [facility] in [place] in hopes to give report but left a voicemail at [phone].
--- NOTE | 2021-04-08 11:44 | P.DS_ITS ---
History of Present Illness History of Present Illness Chief complaint: SOB/Holding Heart/Failing Quickly Narrative: Per Dr. Aldrich: The Patient is an 81 y/o female with a history of type 2 Diabetes, Hypertension, CAD s/p 2 stents, bilateral cataract surgery admitted for failure to thrive. The patient and her daughter moved up from [place], [place] a few years ago. She has a son who lives on [facility] and she came to [place] with the plan to move to [place] with her son. According to the daughter she has gotten progressively weaker such that she is unsafe to ambulate independently. She is now incontinent to both urine and stool and has had significant weight loss. She was last 112 pounds but has weighed in at 102 pounds. Her appetite is poor and she often does not want to eat. In addition she is a bit forgetful vs. confused which is more recent.? Yesterday she was falling and so the daughter brought her to the hospital for evaluation.? She denies fever, chills, or cough. She is always cold. She was not vaccinated for Covid-19 but received the J&J vaccine in the ED this evening.? She has no nausea, vomiting, or diarrhea. She denies any joint pains or rashes. She has a decubuitus ulcer on the left heel and buttock. She also has been seen to clutch her chest but when asked she says she is not in pain.? Patient had a head CT in the ED which was negative, Chest Xray was negative, Pelvic Xray negative for fracture. She is admitted under observation for evaluation of failure to thrive. Discharge Providers Provider Date of admission: 04/06/21 18:15 Discharge Date: 04/08/21 Consults: 04/06/21 12:37 [place] [facility] In[place] Stat Comment: 04/06/21 15:20 Consult to Physical Therapy Evaluate & Treat Comment: need residential care Physician Instructions: Evaluate and Treat 04/06/21 20:33 Consult to Dietitian, Adult Routine Comment: weight loss Reason For Exam: unintentional weight loss Consult to Occupational Therapy Evaluate & Treat Comment: Physician Instructions: Evaluate and treat Consult to Physical Therapy Evaluate & Treat Comment: Physician Instructions: Evaluate and Treat 04/06/21 20:35 Consult to Dietitian, Adult Routine Comment: Reason For Exam: poor appetite, low BMI Discharge provider: Asif Vieyra MD Summary Hospital Course Discharge Diagnosis: 1. Failure to thrive 2. Type 2 Diabetes 3. Hypertension 4. CAD 5. Dementia Hospital Course: Ms. Campbell is an 81W with PMH DM2, HTN, CAD, weight loss admitted for failure to thrive. She has weakness, frequent falls, incontinence that has worsened. She was mildly dehydrated and received fluids. Otherwise she no negative workup with head CT for intracranial process. Negative workup with xray of hip. Negative workup for infection. She had an a1c of 10 and was discharged with metformin and glipizide. She had no significant acute medical need, and was discharged to snf for therapy. Exam Vital Signs (past 8 hours): Oxygen Delivery Method Room Air Oxygen Flow Rate 0 Narrative Exam Narrative: GEN: no acute distress CV: regular rate and rhythm PULM: clear bilaterally ABD: soft, nontender, nondistended, no organomegaly EXT: warm and well perfused with no edema Objective Labs Result Diagrams: 04/07/21 10:15 04/07/21 10:15 [facility] Medical History (Updated 04/06/21 @ 20:49 by Hiral Aldrich MD) CAD (coronary artery disease) Encephalitis Hypertension Tachycardia Type 2 diabetes mellitus Surgical History (Updated 04/06/21 @ 20:44 by Hiral Aldrich MD) Status post laser cataract surgery of both eyes Family History Mother Cancer Social History household members: children Smoking Status: Never smoker alcohol intake: never Discharge Plan Discharge Plan Patient Disposition: SNF Provider Discharge Comment: Ms. Campbell was admitted with chronic but worsening weakness and falls. She was slightly dehydrated and given fluids. She was found to have an a1c of 10, was ordered for glipizde and metformin. She is discharged to SNF for therapy to get stronger. She should have her blood sugars monitored closely and may possibly need to be started on insulin in the future. I certify [facility] [place] [facility] care is medically necessary on a continuing basis for any conditions for which he/ she received care during this hospitalization.: Yes The receiving facility has agreed to accept transfer and provide medical treatment.: Yes Discharge orders & Medications Prescriptions: Continued metformin 500 mg Tablet 500 mg PO BID RF: 0 glipizide 5 mg Tablet Extended Release 24hr 5 mg PO DAILY RF: 0 aspirin 81 mg Tablet 81 mg PO DAILY RF: 0 metoprolol succinate 25 mg Tablet Extended Release 24 Hr 25 mg PO DAILY RF: 0 Discharge Health Status Multidrug resistant organism: No MDRO Diet/Activity/Treatments Diet: Carb-consistent/Diabetic Liquid consistency: Normal/Thin Food texture: Regular Special Rehabilitation Services Rehab type: Physical therapy and Occupational therapy Discharge Data Attending Provider: Cresencio Cerna MIPS - DC The patient has current or prior documentation of left ventricular ejection fraction (LVEF) less than 40%, or moderate or severely depressed left ventricular systolic function.: No
--- NOTE | 2021-04-08 12:18 | PT.IPTN ---
Physical Therapy Treatment Note M2 PT-IP Current Condition Start: 04/06/21 16:58 Freq: Status: Active Protocol: Document 04/08/21 11:42 SP (Rec: 04/08/21 13:33 SP [id number]) Physical Therapy Current Condition Current Condition Evaluation Date 04/06/21 Treatment Diagnosis weakness M3 PT-IP Subjective Start: 04/06/21 16:58 Freq: Status: Active Protocol: Document 04/08/21 11:42 SP (Rec: 04/08/21 13:33 SP [id number]) Subjective Physical Therapy Visit Type Type Treatment Note Visit Start Time 11:42 Visit Stop Time 12:18 Total Visit Minutes 36 Notes Son in room, provided 2nd person assist required during tx. Number of FELLER BUNCHER OPERATOR Visits 3 Physical Therapy Visit Comments Patient Comments Pt agreeable to work w/ therapy. Therapy Pain Assessment Pain Present Pain Present Denied Pain M4 PT-IP Mobility and Gait Start: 04/06/21 16:58 Freq: Status: Active Protocol: Document 04/08/21 11:42 SP (Rec: 04/08/21 13:33 SP [id number]) PT-Bed Mobility Assessment Supine to Sit Supine to Sit Maximum Assistance,1 Person Assistance Scooting Scooting to Edge of Bed Moderate Assistance PT-Transfer Assessment Sit to and From Stand Sit to and from Stand Maximum Assistance,2 Person Assistance,Use of Upper Extremities Equipment Transfer Assistive Device Gait Belt,Front Wheeled Walker Orthotic/Prosthetic Devices or Brace: No Transfers Transfer Destination Chair Transfer Technique Stand Step Pivot w/ FWW Transfer Ability Level of Assist Maximum Assistance,2 Person Assistance,Use of Upper Extremities Comments Mobility Comments Pt elevated supine in bed when arrived, son in room brought personal 4WW and belongings to bring to SNF. Pt requires little encouragement for mobilizing. FELLER BUNCHER OPERATOR instructed BLE ex AP, HS AAROM, hip abd to EOB. Elevated supine>sit Max A x1 for LE assist to EOB and trunk righting to sit, trunk righting w/ use of R bed rail, Mod- Max A sit and scoot to EOB. Once EOB CGA with UE support. Sit>stand Max A with verbal and tatile cues for push from bed and transition to FWW. Max Ax2 (FELLER BUNCHER OPERATOR & Son) for standing forward trunk posture little improvement with cues more upright, son stated always has been leaned forward posture. Instructed august x2, progressed SPT to R chair Max A x2 with cues and support for sequencing FWW repositioning, then reach back Max A x2 for slow descent to chair. Pt rested 3 min then attempted 2nd stand, Max A x2 but unable to come to full stand and transition hands chair> fWW, returned to chair. Mod A for scooting back in chair, instructed HRTR and LAQ with AAROM for RLE ankle DF and knee extension complete full range. FELLER BUNCHER OPERATOR reclined pt in chair, noted coughing on saliva so returned pt up upright and notified nursing and EDGER TECHNICIAN. Pt had call light and all needs in reach before left, chair alarm donned. Recommending SNF for increased strength and functional mobility. Gait Assessment Gait Gait Assistance Required: Maximum Assistance,2 Person Assist Distance (Feet) 2 Assistive Devices Assistive Device Gait Belt,Front Wheeled Walker Orthotic/Prosthetic Devices or Brace: No Gait Deviations General Gait Pattern Antalgic,Decreased Stride Length,Decreased Feet Clearance,Flexed Trunk,Step-to Gait Factors Limiting Gait Function Factors Limiting Gait Function Decreased Activity Tolerance, Decreased Strength,Difficulty Following Directions,Limited Range of Motion,Poor Balance, Poor Safety Awareness Comments Gait Comments See mobility comments. PT-Balance Assessment Sitting Balance and Reactions Static Sitting Balance Ability Fair Dynamic Sitting Balance Ability Poor Standing Balance and Reactions Static Standing Balance Ability Poor Dynamic Standing Balance Ability Poor Device Used FWW M5 PT-IP Objective Assessments Start: 04/06/21 16:58 Freq: Status: Active Protocol: Document 04/06/21 17:09 LR (Rec: 04/06/21 17:24 LR [id number]) Orientation Orientation/Cognition Level of Alertness Alert Safety Awareness Decreased Safety Awareness Memory Description Short Term Impaired Gross Range of Motion Lower Extremity ROM Impairments unable to do heel slide B Strength Lower Extremity Strength Assessment Bilaterally Impaired M6 PT-IP Treatment Start: 04/06/21 16:58 Freq: Status: Active Protocol: Document 04/08/21 11:42 SP (Rec: 04/08/21 13:33 SP [id number]) Physical Therapy Treatment Exercises Exercises Ankle Pumps,Gluteal Sets,Quad Sets,Supine Hip Abduction, Seated Knee Flexion/Extension Education Education Provided Safety M7 PT-IP Assessment and Plan Start: 04/06/21 16:58 Freq: Status: Active Protocol: Document 04/08/21 11:42 SP (Rec: 04/08/21 13:33 SP [id number]) PT Summary Assessment and Plan Potential Rehabilitation Potential Fair Status of Condition at Evaluation Evolving Summary Impairments ROM,Strength,Balance,Cognition ,Bed Mobility,Transfers,Gait, Activity Tolerance Progress Towards Goals Progressing Toward Goals,Slow Progress due to Activity Tolerance Assessment Summary Pt requires significant assistance at this time: Max A for bed mob, max A x2 for sit <>stand, SPT using FWW. FELLER BUNCHER OPERATOR recommending SNF for continued strength and progress functional mobility. Goals Bed Mobility Goal Minimal Assistance Transfer Goal Contact Guard Assistance Gait Goal Minimal Assistance Gait Distance 10ft Days to Meet Goals 6 Frequency of Treatment Frequency Of Treatment Once a Day Treatment Plan Physical Therapy Treatment Plan Bed Mobility Training,Transfer Training,Gait Training, Therapeutic Exercise,Balance Retraining,Discharge Planning, Neuromuscular Re-ed Other Recommendations and Next Treatment Bed mob, transfers, gait if Focus safe using FWW. Precautions Other Precautions Falls Recommendations To Nursing Amount of Assist Needed 2 Person Assist Discharge Recommendations PT Discharge Recommendations SNF Rehab Transportation Needs at Discharge Wheelchair/Cabulance
== END 2021-04-08 14:11 ==
LOC: ED 17:29 → AC 18:17
PROVIDERS: Internal Medicine; Admitting Provider Internal Medicine; Emergency Provider Emergency Medicine; Referring Provider Emergency Medicine; Visit Provider Internal Medicine
DX: R62.7 Adult failure to thrive (principal); R07.9 Chest pain, unspecified; R06.02 Shortness of breath; E86.0 Dehydration; R53.1 Weakness; R63.4 Abnormal weight loss; R60.0 Localized edema; W19.XXXA Unspecified fall, initial encounter; F03.90 Unspecified dementia, unspecified severity, without behavioral disturbance, psychotic disturbance, mood disturbance, and anxiety; R32 Unspecified urinary incontinence; R15.9 Full incontinence of feces; E11.9 Type 2 diabetes mellitus without complications; I10 Essential (primary) hypertension; I25.10 Atherosclerotic heart disease of native coronary artery without angina pectoris; Z91.81 History of falling; Z79.84 Long term (current) use of oral hypoglycemic drugs; Z20.822 Contact with and (suspected) exposure to COVID-19
CPT/HCPCS: 0031A; 36415; 70450; 71045; 73502; 80048; 80053; 80061; 82550; 82962; 83036; 83690; 83880; 84484; 85025; 87086; 87635; 90471; 91303; 93005; 93010; 93971; 94760; 96365; 96366; 97110; 97162; 97166; 97530; 99285; C9803; G0378; J1650; J1815